=== PATIENT | male | born 1950 | race Caucasian/White ===

== ENCOUNTER 2016-12-26 15:44 | Inpatient (IN) | payer BC, MEDICARE ==
[~2016-12-26] VITALS: Ht 175.3 cm; Wt 150.0 kg
[2016-12-26 01:58] VITALS: BP_SYST 114; RESP 18; TEMP 98.2
[2016-12-26 03:58] VITALS: BP_SYST 102; RESP 20; TEMP 97.8
[2016-12-26] MEDS ORDERED: Hydrocodone/APAP 10/325 MG TAB ONE (16:48)
[2016-12-26] MEDS ORDERED: PRAMIPEXOLE 1 MG TAB PO ONE (20:00)
[2016-12-26] MEDS ORDERED: GLUCAGON 1 MG VIAL IM PRN (20:30)
[2016-12-26] MEDS ORDERED: SALINE FLUSH 10 ML FLUSH PRN (20:30)
[2016-12-26] MEDS ORDERED: BUMETANIDE 1 MG/4 ML VIAL IV ONE (20:30)
[2016-12-26] MEDS ORDERED: ONDANSETRON 4 MG VIAL IV PRN (20:30)
[2016-12-26] MEDS ORDERED: DEXTROSE 50% SYRINGE 50 ML IV PRN (20:30)
[2016-12-26 21:58] VITALS: BP_SYST 119; RESP 18; TEMP 97.8
[2016-12-26 22:00] VITALS: BP_SYST 101; RESP 18; TEMP 98.1; Ht 175.3 cm; Wt 150.0 kg
[2016-12-26 23:58] VITALS: BP_SYST 101; RESP 18; TEMP 98
[2016-12-27] VITALS (7 sets, daily range): BP systolic 99–119; RESP 18–20; TEMP 97.7–98.9
[2016-12-27] MEDS: GABAPENTIN 300 MG CAP PO SCH ×4 (00:47→19:51)
[2016-12-27] MEDS: SALINE FLUSH 10 ML FLUSH SCH ×3 (00:48→19:55)
[2016-12-27] MEDS: SODIUM CHLORIDE 0.9% FLUSH BAG 500 ML IV SCH (06:00)
[2016-12-27] MEDS: Hydrocodone/APAP 10/325 MG TAB PO PRN ×3 (06:32→21:48)
[2016-12-27] MEDS ORDERED: BUMETANIDE 1 MG/4 ML VIAL IV SCH (09:00)
[2016-12-27] MEDS ORDERED: METOLAZONE 5 MG TAB PO ONE (10:35)
[2016-12-27] MEDS: TRIAMCIN 0.1% CR 454 GM TOPICAL SCH ×2 (14:51→21:00)
[2016-12-27] MEDS: BUMETANIDE 1 MG/4 ML VIAL IV SCH (16:31)
[2016-12-27] MEDS: MICONAZOLE 2% PWD TOPICAL SCH ×2 (16:32→19:55)
[2016-12-27] MEDS ORDERED: humuLIN N INSULIN SUBQ ONE (16:55)
[2016-12-27] MEDS: PRIMIDONE 50 MG TAB PO SCH (19:51)
[2016-12-28] MEDS: BUMETANIDE 1 MG/4 ML VIAL IV SCH ×2 (00:24→08:42)
[2016-12-28] MEDS: SODIUM CHLORIDE 0.9% FLUSH BAG 500 ML IV SCH (00:24)
[2016-12-28 03:42] VITALS: BP_SYST 100; RESP 18; TEMP 98.9
[2016-12-28 07:52] VITALS: BP_SYST 109; TEMP 97.5
[2016-12-28] MEDS: SALINE FLUSH 10 ML FLUSH SCH ×2 (08:41→21:11)
[2016-12-28] MEDS: GABAPENTIN 300 MG CAP PO SCH ×2 (08:42→21:12)
[2016-12-28] MEDS: MICONAZOLE 2% PWD TOPICAL SCH ×2 (08:43→21:17)
[2016-12-28] MEDS: TRIAMCIN 0.1% CR 454 GM TOPICAL SCH ×2 (08:43→21:17)
[2016-12-28 10:57] VITALS: BP_SYST 127; RESP 20; TEMP 98.3
[2016-12-28] MEDS: Hydrocodone/APAP 10/325 MG TAB PO PRN (14:41)
[2016-12-28 16:04] VITALS: BP_SYST 118; RESP 18; TEMP 98.1
[2016-12-28] MEDS: BUMETANIDE 1 MG TAB PO SCH (16:34)
[2016-12-28 20:12] VITALS: BP_SYST 102; RESP 18; TEMP 99.1
[2016-12-28] MEDS ORDERED: MISSING DOSE XX ONE (21:00)
[2016-12-28] MEDS: PRIMIDONE 50 MG TAB PO SCH (21:11)
[2016-12-28] MEDS: Atorvastatin 20 MG TAB PO SCH (21:12)
[2016-12-28 23:15] VITALS: BP_SYST 120; RESP 18; TEMP 97.6
[2016-12-29] MEDS: Hydrocodone/APAP 10/325 MG TAB PO PRN (01:50)
[2016-12-29] MEDS: SODIUM CHLORIDE 0.9% FLUSH BAG 500 ML IV SCH (03:48)
[2016-12-29 03:54] VITALS: BP_SYST 108; RESP 18; TEMP 98.2
[2016-12-29 07:38] VITALS: BP_SYST 110; RESP 20; TEMP 98.1
[2016-12-29] MEDS: SALINE FLUSH 10 ML FLUSH SCH ×2 (08:17→21:28)
[2016-12-29] MEDS: BUMETANIDE 1 MG TAB PO SCH ×2 (08:17→17:10)
[2016-12-29] MEDS: GABAPENTIN 300 MG CAP PO SCH ×2 (08:17→21:28)
[2016-12-29] MEDS: MICONAZOLE 2% PWD TOPICAL SCH ×2 (08:17→21:29)
[2016-12-29] MEDS: TRIAMCIN 0.1% CR 454 GM TOPICAL SCH ×2 (08:18→21:00)
[2016-12-29 11:55] VITALS: BP_SYST 120; RESP 20; TEMP 98.1
[2016-12-29] MEDS: FENTANYL 100 MCG/HR PATCH TRANSDERM SCH (13:50)
[2016-12-29 15:54] VITALS: BP_SYST 110; RESP 20; TEMP 98.7
[2016-12-29 20:06] VITALS: BP_SYST 130; RESP 20; TEMP 98
[2016-12-29] MEDS ORDERED: MISSING DOSE XX ONE (21:20)
[2016-12-29] MEDS: PRIMIDONE 50 MG TAB PO SCH (21:28)
[2016-12-29] MEDS: Atorvastatin 20 MG TAB PO SCH (21:28)
[2016-12-29 23:16] VITALS: BP_SYST 106; RESP 20; TEMP 98.2
[2016-12-30] MEDS: SODIUM CHLORIDE 0.9% FLUSH BAG 500 ML IV SCH ×2 (03:49→03:50)
[2016-12-30 04:03] VITALS: BP_SYST 108; RESP 18; TEMP 98.4
[2016-12-30] MEDS: Hydrocodone/APAP 10/325 MG TAB PO PRN (06:23)
[2016-12-30] MEDS: SALINE FLUSH 10 ML FLUSH SCH ×2 (07:42→21:31)
[2016-12-30 07:59] VITALS: BP_SYST 92; RESP 18; TEMP 98.2
[2016-12-30] MEDS: TRIAMCIN 0.1% CR 454 GM TOPICAL SCH ×2 (09:21→21:00)
[2016-12-30] MEDS: GABAPENTIN 300 MG CAP PO SCH ×2 (09:21→21:33)
[2016-12-30] MEDS: MICONAZOLE 2% PWD TOPICAL SCH (09:21)
[2016-12-30] MEDS: BUMETANIDE 1 MG TAB PO SCH ×2 (09:21→16:57)
[2016-12-30 11:39] VITALS: BP_SYST 102; RESP 18; TEMP 97.6
[2016-12-30 14:45] VITALS: BP_SYST 88; RESP 18; TEMP 97.2
[2016-12-30 20:20] VITALS: BP_SYST 108; RESP 18; TEMP 97.9
[2016-12-30] MEDS: Atorvastatin 20 MG TAB PO SCH (21:32)
[2016-12-30] MEDS: PRIMIDONE 50 MG TAB PO SCH (21:32)
[2016-12-30 23:41] VITALS: BP_SYST 108; RESP 18; TEMP 97.7
[2016-12-31] VITALS (7 sets, daily range): BP systolic 114–130; RESP 18–20; TEMP 97.4–98.4
[2016-12-31] MEDS: Hydrocodone/APAP 10/325 MG TAB PO PRN (02:43)
[2016-12-31] MEDS: MICONAZOLE 2% PWD TOPICAL SCH ×2 (02:56→09:48)
[2016-12-31] MEDS: SODIUM CHLORIDE 0.9% FLUSH BAG 500 ML IV SCH ×2 (06:00)
[2016-12-31] MEDS: SALINE FLUSH 10 ML FLUSH SCH (08:42)
[2016-12-31] MEDS: BUMETANIDE 1 MG TAB PO SCH (08:44)
[2016-12-31] MEDS: GABAPENTIN 300 MG CAP PO SCH ×2 (08:44→20:56)
[2016-12-31] MEDS: TRIAMCIN 0.1% CR 454 GM TOPICAL SCH ×2 (09:48→21:00)
[2016-12-31] MEDS: PRIMIDONE 50 MG TAB PO SCH (20:55)
[2016-12-31] MEDS: Atorvastatin 20 MG TAB PO SCH (20:55)
[2017-01-01] MEDS: Hydrocodone/APAP 10/325 MG TAB PO PRN ×4 (02:56→22:59)
[2017-01-01] MEDS: MICONAZOLE 2% PWD TOPICAL SCH ×3 (02:57→20:54)
[2017-01-01 04:17] VITALS: BP_SYST 106; RESP 20; TEMP 98.2
[2017-01-01] MEDS: SALINE FLUSH 10 ML FLUSH SCH ×3 (04:45→20:53)
[2017-01-01] MEDS: SODIUM CHLORIDE 0.9% FLUSH BAG 500 ML IV SCH ×2 (04:46→04:47)
[2017-01-01 07:46] VITALS: BP_SYST 101; RESP 20; TEMP 98.1
[2017-01-01] MEDS: GABAPENTIN 300 MG CAP PO SCH ×2 (08:24→20:53)
[2017-01-01] MEDS: BUMETANIDE 1 MG TAB PO SCH (08:24)
[2017-01-01] MEDS: TRIAMCIN 0.1% CR 454 GM TOPICAL SCH ×2 (08:27→20:55)
[2017-01-01 10:51] VITALS: BP_SYST 99; RESP 20; TEMP 98.1
[2017-01-01] MEDS ORDERED: REMOVE FENTANYL PATCH XX SCH (13:00)
[2017-01-01] MEDS: FENTANYL 100 MCG/HR PATCH TRANSDERM SCH (13:17)
[2017-01-01 15:36] VITALS: BP_SYST 135; RESP 20; TEMP 97.4
[2017-01-01 19:55] VITALS: BP_SYST 136; RESP 18; TEMP 97.9
[2017-01-01] MEDS: PRIMIDONE 50 MG TAB PO SCH (20:53)
[2017-01-01] MEDS: Atorvastatin 20 MG TAB PO SCH (20:53)
[2017-01-01 23:15] VITALS: BP_SYST 118; RESP 18; TEMP 98.5
[2017-01-02 02:27] VITALS: BP_SYST 119; RESP 18
[2017-01-02] MEDS: SODIUM CHLORIDE 0.9% FLUSH BAG 500 ML IV SCH ×2 (05:49→05:50)
[2017-01-02 07:18] VITALS: BP_SYST 134; RESP 17; TEMP 97.1
[2017-01-02] MEDS: SALINE FLUSH 10 ML FLUSH SCH (09:30)
[2017-01-02] MEDS: BUMETANIDE 1 MG TAB PO SCH (09:32)
[2017-01-02] MEDS: GABAPENTIN 300 MG CAP PO SCH (09:32)
[2017-01-02] MEDS: MICONAZOLE 2% PWD TOPICAL SCH (09:33)
[2017-01-02] MEDS: Hydrocodone/APAP 10/325 MG TAB PO PRN ×2 (09:33→15:41)
[2017-01-02] MEDS: TRIAMCIN 0.1% CR 454 GM TOPICAL SCH ×3 (09:34→16:27)
[2017-01-02 10:47] VITALS: BP_SYST 110; RESP 18; TEMP 97.8
[2017-01-02 14:53] VITALS: BP_SYST 134; RESP 18; TEMP 97.6
[2017-01-02 17:22] VITALS: BP_SYST 134; RESP 18; TEMP 97.6
== END 2017-01-02 18:30 | disposition home health service (06) | DRG 69 ==
LOC: ENRESERVDT → ENRESERVTM → ER 15:44 → EMR 20:30 → ENPENDDIS 20:30 → PCU2 22:00
PROVIDERS: ADMIT Family Medicine Addiction Medicine; ATTEND Family Medicine Addiction Medicine
PROC: 0HBRXZZ Excision of Toe Nail, External Approach (ICD-10-PCS; principal; 2016-12-28)
PROC: 0HBRXZZ Excision of Toe Nail, External Approach (ICD-10-PCS; 2016-12-28)
PROC: 0HBRXZZ Excision of Toe Nail, External Approach (ICD-10-PCS; 2016-12-28)
PROC: 0HBRXZZ Excision of Toe Nail, External Approach (ICD-10-PCS; 2016-12-28)
PROC: 0HBRXZZ Excision of Toe Nail, External Approach (ICD-10-PCS; 2016-12-28)
PROC: 0HBRXZZ Excision of Toe Nail, External Approach (ICD-10-PCS; 2016-12-28)
PROC: 0HBRXZZ Excision of Toe Nail, External Approach (ICD-10-PCS; 2016-12-28)
PROC: 0HBRXZZ Excision of Toe Nail, External Approach (ICD-10-PCS; 2016-12-28)
PROC: 0HBRXZZ Excision of Toe Nail, External Approach (ICD-10-PCS; 2016-12-28)
DX: G45.9 Transient cerebral ischemic attack, unspecified (principal); N17.9 Acute kidney failure, unspecified; E11.22 Type 2 diabetes mellitus with diabetic chronic kidney disease; I48.2 Chronic atrial fibrillation; E11.42 Type 2 diabetes mellitus with diabetic polyneuropathy; N18.4 Chronic kidney disease, stage 4 (severe); E11.65 Type 2 diabetes mellitus with hyperglycemia; I12.9 Hypertensive chronic kidney disease with stage 1 through stage 4 chronic kidney disease, or unspecified chronic kidney disease; Z68.42 Body mass index [BMI] 45.0-49.9, adult; G25.3 Myoclonus; Z79.4 Long term (current) use of insulin; F32.9 Major depressive disorder, single episode, unspecified; I87.2 Venous insufficiency (chronic) (peripheral); E87.5 Hyperkalemia; E66.01 Morbid (severe) obesity due to excess calories; G25.81 Restless legs syndrome; N26.1 Atrophy of kidney (terminal); G47.33 Obstructive sleep apnea (adult) (pediatric); G25.0 Essential tremor; T42.6X5A Adverse effect of other antiepileptic and sedative-hypnotic drugs, initial encounter; Z86.73 Personal history of transient ischemic attack (TIA), and cerebral infarction without residual deficits; Z95.0 Presence of cardiac pacemaker; Z86.718 Personal history of other venous thrombosis and embolism; Z79.01 Long term (current) use of anticoagulants; B35.1 Tinea unguium; L60.0 Ingrowing nail
CPT/HCPCS: 36415; 70450; 71010; 72125; 76770; 80048; 80053; 80061; 81003; 82553; 82570; 82947; 83036; 83735; 83880; 84100; 84156; 84403; 84484; 85025; 85610; 87040; 93005; 93880; 94799; 99222; 99233; 99239